=== PATIENT | male | born 1965 ===

== ENCOUNTER 2018-11-05 01:55 | Inpatient (IN) | payer MEDICAID, OTHER ==
--- NOTE | 2018-11-05 02:27 | C.PDOC ---
History Of Present Illness 53 year old male brought in by EMS after feeling nauseous with body aches and tremors. Patient states he is withdrawing from ETOH and heroin, last use was 9am yesterday. He tried to get set up with outpatient suboxone program but was told he has to go to multiple office meetings and they can only start him in two days. Denies any other complaints. Time Seen by Provider: 11/05/18 02:04 Chief Complaint (Nursing): Substance Abuse History Per: Patient History/Exam Limitations: no limitations Onset/Duration Of Symptoms: Hrs Current Symptoms Are (Timing): Still Present Associated Symptoms: Other (Nausea, body aches, tremors) Recent travel outside of the [place]: No Past Medical History Reviewed: Historical Data, Nursing Documentation, Vital Signs Vital Signs: Last Vital Signs Temp 98.4 F 11/05/18 02:02 Pulse 89 11/05/18 02:02 Resp 16 11/05/18 02:02 BP 124/88 11/05/18 02:02 Pulse Ox 95 11/05/18 02:02 Primary Care Provider: Non [facility] Provider, - Medical History PMH: Anxiety, Asthma, Bronchitis, Depression, HTN, Seizures (unclear possibly etoh related) Denies: Diabetes, Hepatitis, HIV, Chronic Kidney Disease, Sexually Transmitted Disease - [facility] Procedures COMBINED ALCOHOL AND DRUG DETOXIFICATION (06/14/14) DETOXIFICATION SERVICES FOR SUBSTANCE ABUSE TREATMENT (11/19/15) GROUP PSYCHOTHERAPY (11/19/15) Family History: States: Unknown Family Hx - Social History Hx Tobacco Use: Yes Hx Alcohol Use: Yes Hx Substance Use: Yes - Immunization History Hx Tetanus Toxoid Vaccination: Yes Hx Influenza Vaccination: No Hx Pneumococcal Vaccination: Yes Review Of Systems Except As Marked, All Systems Reviewed And Found Negative. Gastrointestinal: Positive for: Nausea Musculoskeletal: Positive for: Other (Body aches) Neurological: Positive for: Other (Tremors) Physical Exam - Physical Exam Appears: Non-toxic, Other (Uncomfortable) Skin: Normal Color, Warm Head: Atraumatic, Normacephalic Eye(s): bilateral: Normal Inspection Oral Mucosa: Moist Chest: Symmetrical, No Tenderness Cardiovascular: Rhythm Regular Respiratory: Normal Breath Sounds, No Rales, No Rhonchi, No Wheezing Gastrointestinal/Abdominal: Soft, No Tenderness Extremity: Normal ROM (x4) Neurological/Psych: Oriented x3, Normal Speech, Other (No tremors noted) Gait: Steady ED Course And Treatment - Laboratory Results Result Diagrams: 11/05/18 02:59 11/05/18 02:59 O2 Sat by Pulse Oximetry: 95 (Room air) Pulse Ox Interpretation: Normal Progress Note: Blood work and urinalysis ordered. Motrin and zofran administered. Patient is medically cleared and accepted to detox unit. Disposition - Disposition Forms: [employer] (Yakut) - Scribe Statement The provider has reviewed the documentation as recorded by the Scribtara Patrick All medical record entries made by the Scribe were at my direction and personally dictated by me. I have reviewed the chart and agree that the record accurately reflects my personal performance of the history, physical exam, medical decision making, and the department course for this patient. I have also personally directed, reviewed, and agree with the discharge instructions and disposition.
[2018-11-05 03:05] LABS: BASO # 0.1 K/uL (0.0-0.2); BASO % 2.8 % (0.0-2.0); EOS # 0.1 K/uL (0.0-0.7); EOS % 1.6 % (0.0-4.0); HEMOGLOBIN 12.5 g/dL (12.0-18.0); LYMPH # 1.4 K/uL (1.0-4.3); LYMPH % 41.2 % (20.0-40.0); MEAN CELL VOLUME 97.2 fL (80.0-94.0); MEAN CORPUSCULAR HEMOGLOBIN 33.7 pg (27.0-31.0); MEAN CORPUSCULAR HGB CONC 34.7 g/dL (33.0-37.0); MEAN PLATELET VOLUME 7.7 fL (7.2-11.7); MONO # 0.4 K/uL (0.0-0.8); MONO % 11.6 % (0.0-10.0); NEUT # 1.5 K/uL (1.8-7.0); NEUT % 42.8 % (50.0-75.0); NRBC % 0.1 % (0.0-2.0); RBC 3.7 Mil/uL (4.40-5.90); RED CELL DISTRIBUTION WIDTH 14.6 % (11.5-14.5); WHITE BLOOD COUNT 3.5 K/uL (4.8-10.8)
[2018-11-05 03:08] LABS: SQUAMOUS EPITHIAL < 1 /hpf (0-5); URINE BILIRUBIN NEGATIVE (NEGATIVE); URINE BLOOD TRACE (NEGATIVE); URINE CLARITY Clear (Clear); URINE COLOR Amber (YELLOW); URINE GLUCOSE (UA) NORMAL (Normal); URINE LEUKOCYTE ESTERASE NEG Leu/uL (Negative); URINE PROTEIN 2+ mg/dL (NEGATIVE)
[2018-11-05 03:17] LABS: ALB/GLOB RATIO 1.4 (1.0-2.1); ALBUMIN 4.9 g/dL (3.5-5.0); ALT/SGPT 70 U/L (21-72); AST/SGOT 107 U/L (17-59); BLOOD UREA NITROGEN 11 mg/dL (9-20); CALCIUM 9.3 mg/dl (8.6-10.4); GFR NON-AFRICAN AMERICAN > 60
[2018-11-05 03:26] LABS: BARBITURATES, UR NEGATIVE (NEGATIVE); BENZODIAZEPINES, UR NEGATIVE (NEGATIVE); PHENCYCLIDINE, UR NEGATIVE (NEGATIVE)
[2018-11-05 04:05] LABS: OPIATES, UR POSITIVE (NEGATIVE)
--- NOTE | 2018-11-05 04:20 | PCM.BM ---
<Ramon Hoffman - Last Filed: 11/05/18 04:17> Treatment Plan Problems - Problems identified on initial assessmt Anxiety R/T Substance Use Date Initiated: 11/05/18 Time Initiated: 05:00 Assessment reference: NA Status: Active Chronic Low Self Steem Date Initiated: 11/05/18 Time Initiated: 05:00 Assessment reference: NA Status: Active Knowledge Deficit: Alcohol Use Date Initiated: 11/05/18 Time Initiated: 05:00 Assessment reference: NA Status: Active Treatment assets and liabiliti Patient Assests: cooperative, ADL independent, cognitively intact Patient Liabilities: substance abuse - Milieu Protocol Maintain good personal hygiene: daily Encourage regular showers, daily Remind p atient to perform daily oral care, daily Assist patient to perform ADL's Conduct patient checks and document Observation sheet: Q15 minutes Maintain personal safety: every shift Educate patient to report safety concerns to staff, every shift Monitor environment for contraband/sharps Medication safety: Monitor for expected outcome, potential side effects: every shift, Assess barriers to learning: every shift, Assess readiness for medication education: every shift <Kade Coronel - Last Filed: 11/06/18 12:44> - Diagnosis (1) Alcohol dependence Status: Acute Interventions: 11/06/18 12:44 * Assess 7x/week regarding severity of withdrawal * Educate regarding risks, benefits, side effects and alternatives of medications * Use Motivational Interviewing for abstinence * Use CBT for relapse prevention * Medication management for withdrawal symptoms * Encourage medication assisted treatment * (2) Opiate abuse, continuous Status: Acute Interventions: 11/06/18 12:44 * Assess 7x/week regarding severity of withdrawal * Educate regarding risks, benefits, side effects and alternatives of medications * Use Motivational Interviewing for abstinence * Use CBT for relapse prevention * Medication management for withdrawal symptoms * Encourage medication assisted treatment *
--- NOTE | 2018-11-05 15:00 | PCM.PSYCH ---
Initial Psychiatric Evaluation - Initial Psychiatric Evaluation Type of Admission: Voluntary Legal Status: Capacity Chief Complaint (in patient's own words): "I need detox" History of Present Illness and Precipitating Events: Patient is a 53 year-old male, who is without children and lives with his fianc in an apartment in [place]. 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 He presents to [facility] in order to detox from heroin and alcohol. He admits to using heroin regularly since the age of 17. He last sniffed 6-7 bundles of heroin yesterday morning, Nov 04 2018, but averages about 1 bundle (10 bags) per day. He was receiving Suboxone maintenance from [facility] up until 3 months ago when he relapsed and began using heroin again. He also admits to drinking up to a pint and a half of vodka daily. His last drink was yesterday afternoon and he states that he has been drinking heavily for the past 30 years. He denies use of any other illicit or prescribed substances. UDS was also a high positive for cannabinoids; however, he denies use. He is a current smoker, smoking 2-3 packs per week. He has been to several detox and rehab programs in the past and this is his second time at [facility] for detox. 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 He was clean for three months following rehab; however, he relapsed in August 2018 after his mother . His longest length of sobriety/abstinence was for 3 years while he was incarcerated. He has a history of 4-5 unintentional overdoses, one of which was last month. He denies history of seizures from alcohol withdrawal but states that he typically will experience tremors, sweating and nausea. He states that he feels some depression but denies suicidal ideation. Past Psychiatric History: depression Family Psych History: denies Past Medical History: hypertension, asthma Past Surgical History: two orthopedic surgeries on Left leg (1999 and 2004) Current Medications: Active Medications Generic Name Dose Route Start Last Admin Trade Name Freq PRN Reason Stop Dose Admin Chlordiazepoxide 0 mg 11/05/18 18:00 Librium PO 11/09/18 17:59 Q6 SEBASTIÁN Taper Chlordiazepoxide 25 mg 11/05/18 14:57 Librium PO Q4H PRN Alcohol Withdrawal Clonidine HCl 0.1 mg 11/05/18 10:03 Catapres PO Q4 PRN COWS Score More or Equal to 5 Clonidine HCl 0.1 mg 11/05/18 10:15 11/05/18 14:03 Catapres PO 0.1 mg TID SEBASTIÁN Administration Dicyclomine HCl 10 mg 11/05/18 10:03 Bentyl PO Q6 PRN Muscle spasm Folic Acid 1 mg 11/05/18 15:00 Folic Acid PO DAILY [facility] Gabapentin 400 mg 11/05/18 14:00 11/05/18 14:03 Neurontin PO 400 mg TID SEBASTIÁN Administration Ibuprofen 600 mg 11/05/18 10:03 Motrin Tab PO Q6 PRN Pain, moderate (4-7) Loperamide HCl 2 mg 11/05/18 10:03 Imodium PO Q8 PRN Diarrhea Methadone HCl 5 mg 11/05/18 13:59 Methadone PO Q8H PRN breakhru opioid wdw max 2x/24h Methadone HCl 15 mg 11/06/18 10:00 Methadone PO 11/09/18 09:59 Q24H SEBASTIÁN Taper Multivitamins 1 tab 11/05/18 15:00 Hexavitamin PO DAILY [facility] Nicotine 1 patch 11/05/18 10:15 11/05/18 10:40 Nicoderm Cq TD 1 patch DAILY [facility] Administration Ondansetron HCl 4 mg 11/05/18 10:03 Zofran Tab PO Q8 PRN Nausea/Vomiting Quetiapine Fumarate 100 mg 11/05/18 22:00 Seroquel PO HS [facility] Thiamine HCl 100 mg 11/05/18 15:00 Vitamin B1 Tab PO DAILY [facility] Past Psychiatric History - Past Psychiatric History Previous Treatment History: Intensive Outpatient Pertinent Medical Hx (Current Medical&Sleep Prob, Allergies): Allergies Allergy/AdvReac Type Severity Reaction Status Date / Time No Known Allergies Allergy Verified 12/09/15 01:20 cloNIDine [clonidine HCl] 0.1 mg PO BID 11/05/18 Review of Systems - Psychiatric Psychiatric: Abnormal Sleep Pattern, Anhedonia, Anxiety, Depression, Difficulty Concentrating, Irritability. absent: Hallucinations, Homicidal Ideation, Suicidal Ideation Mental Status Examination - Personal Presentation Personal Presentation: Looks stated age - Affect Affect: Constricted - Motor Activity Motor Activity: Calm - Reliability in Providing Information Reliability in Providing Information: Good - Speech Speech: Organized - Mood Mood: Depressed, Anxious - Formal Thought Process Formal Thought Process: No Impairment - Cognitive Functions Orientation: Person, Place, Situation, Time Sensorium: Alert Attention/Concentration: Easily distracted Estimate of Intelligence: Average Judgement: Intact, as evidence by: Insight regarding need for hospitalization Memory: Recent intact, as evidence by: Ability to recall events of the day, Remote intact, as evidenced by: Abilit to recall sig. life events - Risk Risk: Withdrawal, Diminished functioning - Strength & Assets Inventory Strength & Assets Inventory: Cooperative - Limitations Limitations: Other DSM 5 DX - DSM 5 DSM 5 Diagnosis: - Opioid withdrawal - Opioid use d/o severe - Alcohol withdrawal - Alcohol use d/o severe - Major depressive disorder recurrent, moderate - Recommended/Plan of Treatment Treatment Recommendations and Plan of Treatment: - Methadone taper - Librium taper - Gabapentin for augmentation if needed - Clonidine for hypertension - Seroquel for insomnia - As needed medications - All risks, benefits and alternatives of the medications were discussed with the patient, and the patient agreed and understood. - Attend groups and activities. - Supportive therapy and psychoeducation. - OK for abstinence. - CBT for relapse prevention. - Encourage MAT. - Refer to rehab or IOP, and self-help groups. - Teach healthy lifestyle methods, i.e. diet, exercise, meditation. - OK for smoking cessation - Nicotine patch if needed 34 min Projected ELOS: 4-5 days - Smoking Cessation Smoking Cessation Initiated: Yes
[2018-11-05] MEDS: Multiple Vitamins Tab PO SCH (15:36)
[2018-11-06] MEDS: Multiple Vitamins Tab PO SCH (09:59)
--- NOTE | 2018-11-06 12:44 | PCM.PYCHPN ---
Psychiatric Progress Note - Psychiatric Progress Note Patient seen today, length of contact: 16 min Patient Chief Complaint: "I am better" Problems Identified/Issues Discussed: The pt is seen, chart reviewed, case discussed with staff. The pt is compliant with medications and reports no side-effects. Symptoms are improving but needs more time to stabilize. Pt attends groups and activities. Support given, psycho-education provided. After care discussed. Medication Change: Yes (detox changes daily) Medical Record Reviewed: Yes Mental Status Examination - Cognitive Function Orientation: Person, Place, Situation, Time Memory: Intact Attention: WNL Concentration: Poor Association: WNL Fund of Knowledge: WNL - Mood Mood: Depressed, Anxious - Affect Affect: Constricted - Speech Speech: Appropriate - Formal Thought Process Formal Thought Process: No Impairment - Suicidal Ideation Suicidal Ideation: No - Homicidal Ideation Homicidal Ideation: No Goal/Treatment Plan - Goal/Treatment Plan Need for Continued Stay: Discharge may exacerbated symptoms, Severe functional impairment Progress Toward Problem(s) and Goals/Treatment Plan: - Methadone taper - Librium taper - Gabapentin for augmentation if needed - Clonidine for hypertension - Seroquel for insomnia - As needed medications - All risks, benefits and alternatives of the medications were discussed with the patient, and the patient agreed and understood. - Attend groups and activities. - Supportive therapy and psychoeducation. - ID for abstinence. - CBT for relapse prevention. - Encourage MAT. - Refer to rehab or IOP, and self-help groups. - Teach healthy lifestyle methods, i.e. diet, exercise, meditation. - ID for smoking cessation - Nicotine patch if needed
[2018-11-07] MEDS: Multiple Vitamins Tab PO SCH (09:30)
--- NOTE | 2018-11-07 11:08 | PCM.PYCHPN ---
Psychiatric Progress Note - Psychiatric Progress Note Patient seen today, length of contact: 15 min Patient Chief Complaint: "I am fine, I want to leave tomorrow" Problems Identified/Issues Discussed: The pt is seen, chart reviewed, case discussed with staff. Support and psychoeducation given, CBT and AL used briefly Pt is improving slowly and needs more time, still has ongoing symptoms. No SEs from medications, risks discussed. After care discussed Medication Change: Yes (detox changes daily) Medical Record Reviewed: Yes Mental Status Examination - Cognitive Function Orientation: Person, Place, Situation, Time Memory: Intact Attention: WNL Concentration: Poor Association: WNL Fund of Knowledge: WNL - Mood Mood: Depressed, Anxious - Affect Affect: Constricted - Speech Speech: Appropriate - Formal Thought Process Formal Thought Process: No Impairment - Suicidal Ideation Suicidal Ideation: No - Homicidal Ideation Homicidal Ideation: No Goal/Treatment Plan - Goal/Treatment Plan Need for Continued Stay: Discharge may exacerbated symptoms, Severe functional impairment Progress Toward Problem(s) and Goals/Treatment Plan: - Methadone taper - Librium taper - Gabapentin for augmentation if needed - Clonidine for hypertension - Seroquel for insomnia - As needed medications - All risks, benefits and alternatives of the medications were discussed with the patient, and the patient agreed and understood. - Attend groups and activities. - Supportive therapy and psychoeducation. - AL for abstinence. - CBT for relapse prevention. - Encourage MAT. - Refer to rehab or IOP, and self-help groups. - Teach healthy lifestyle methods, i.e. diet, exercise, meditation. - AL for smoking cessation - Nicotine patch if needed Estimated Date of D/C: 11/08/18
[2018-11-08 05:59] VITALS: RESP 20
[2018-11-08 08:48] VITALS: BP 126/88; PULSE 66; TEMP 97.7; O2SAT 100
[2018-11-08] MEDS: Multiple Vitamins Tab PO SCH (09:36)
--- NOTE | 2018-11-08 10:35 | PCM.PYCHDC ---
Mental Status Examination - Mental Status Examination Orientation: Person, Place, Situation, Time Memory: Intact Mood: Neutral Affect: Constricted Speech: Soft Attention: WNL Concentration: WNL Formal Thought Process: No Impairment Description of patient's judgement and insight: good, fair Psychotic Thoughts and Behaviors: denies any AVH Suicidal Ideation: No Current Homicidal Ideation?: No Discharge Summary - Discharge Note Reason for Hospitalization: Patient is a 53 year-old male, who is without children and lives with his fianc in an apartment in [place]. 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 He presents to [facility] in order to detox from heroin and alcohol. He admits to using heroin regularly since the age of 17. He last sniffed 6-7 bundles of heroin yesterday morning, Nov 04 2018, but averages about 1 bundle (10 bags) per day. He was receiving Suboxone maintenance from [facility] up until 3 months ago when he relapsed and began using heroin again. He also admits to drinking up to a pint and a half of vodka daily. His last drink was yesterday afternoon and he states that he has been drinking heavily for the past 30 years. He denies use of any other illicit or prescribed substances. UDS was also a high positive for cannabinoids; however, he denies use. He is a current smoker, smoking 2-3 packs per week. He has been to several detox and rehab programs in the past and this is his second time at [facility] for detox. Six months ago, he completed rehab in [place], [place], as part of his probation following 3 years in [facility]. He was clean for three months following rehab; however, he relapsed in August 2018 after his mother . His longest length of sobriety/abstinence was for 3 years while he was incarcerated. He has a history of 4-5 unintentional overdoses, one of which was last month. He denies history of seizures from alcohol withdrawal but states that he typically will experience tremors, sweating and nausea. He states that he feels some depression but denies suicidal ideation. Past Psychiatric History: depression Family Psych History: denies Past Medical History: hypertension, asthma Past Surgical History: two orthopedic surgeries on Left leg (1999 and 2004) Consultations:: List each consultation separately and include: 1. Reason for request. 2. Findings. 3. Follow-up Summary of Hospital Course include:: 1. Description of specific treatment plan utilized for patients during their course of treatmen. 2. Summarize the time- course for resolution of acute symptoms and/or regressed behaviors. 3. Describe issues identified and worked on during hospitalization. 4. Describe medication utilized. 5. Describe medical problems identified and treated. 6. Reassessment of suicide risk - Final Diagnosis (DSM 5) Condition upon Discharge: GOOD DSM 5: - Opioid withdrawal - Opioid use d/o severe - Alcohol withdrawal - Alcohol use d/o severe - Major depressive disorder recurrent, moderate Disposition: HOME/ ROUTINE Prescriptions/Medication Reconciliation: Gabapentin [Neurontin] 400 mg PO TID #90 cap QUEtiapine [Seroquel] 100 mg PO HS #30 tab - Smoking Cessation Smoking Cessation Medication prescribed: No - Antipsychotic Medications Pt discharged on 2 or more routine antipsychotic medications: No
== END 2018-11-08 12:00 | disposition home or self-care (01) | DRG 744 ==
LOC: C.ER 01:55 → C.7D 03:43 → OBSVTOIN 10:01
PROVIDERS: ADMIT Psychiatry & Neurology Psychiatry; ATTEND Psychiatry & Neurology Psychiatry
PROC: HZ2ZZZZ Detoxification Services for Substance Abuse Treatment (ICD-10-PCS; principal; 2018-11-05)
PROC: HZ52ZZZ Individual Psychotherapy for Substance Abuse Treatment, Cognitive-Behavioral (ICD-10-PCS; 2018-11-05)
PROC: HZ59ZZZ Individual Psychotherapy for Substance Abuse Treatment, Supportive (ICD-10-PCS; 2018-11-05)
PROC: HZ56ZZZ Individual Psychotherapy for Substance Abuse Treatment, Psychoeducation (ICD-10-PCS; 2018-11-05)
PROC: HZ42ZZZ Group Counseling for Substance Abuse Treatment, Cognitive-Behavioral (ICD-10-PCS; 2018-11-05)
PROC: HZ46ZZZ Group Counseling for Substance Abuse Treatment, Psychoeducation (ICD-10-PCS; 2018-11-05)
PROC: GZHZZZZ Group Psychotherapy (ICD-10-PCS; 2018-11-05)
PROC: GZ58ZZZ Individual Psychotherapy, Cognitive-Behavioral (ICD-10-PCS; 2018-11-05)
PROC: GZ56ZZZ Individual Psychotherapy, Supportive (ICD-10-PCS; 2018-11-05)
DX: F10.230 Alcohol dependence with withdrawal, uncomplicated (principal); F33.1 Major depressive disorder, recurrent, moderate; F11.23 Opioid dependence with withdrawal; Y90.8 Blood alcohol level of 240 mg/100 ml or more; G47.00 Insomnia, unspecified; I10 Essential (primary) hypertension; J45.909 Unspecified asthma, uncomplicated; F41.9 Anxiety disorder, unspecified; F17.210 Nicotine dependence, cigarettes, uncomplicated